=== PATIENT | male | born 1980 | race Caucasian/White ===

== ENCOUNTER 2017-05-15 21:56 | Emergency (ER) | payer BC, OTHER ==
[2017-05-15] MEDS ORDERED: PENICILLIN G BENZATHINE 1,200,000 UNITS INJ IM ONE (22:22)
[2017-05-15] MEDS ORDERED: PHARMACY KEY 1 EACH EACH MC ONE (22:26)
--- NOTE | 2017-05-15 22:27 | ED Physician Documentation ---
General Adult - HISTORIAN Historian: patient - HPI Stated Complaint: Left neck swelling Chief Complaint: General Adult Additional Information: Sore throat, swollen L neck, left ear pain, fever for 4 days. - ROS CONST: fever - PAST HX Past History: none Surgeries/Procedures: other (R knee, torn meniscus) Allergies/Adverse Reactions: Allergies Allergy/AdvReac Type Severity Reaction Status Date / Time No Known Allergies Allergy Verified 05/15/17 22:19 Home Medications: Ambulatory Orders Medication Instructions Recorded NK [NK] 05/15/17 - SOCIAL HX Smoking History: cigarettes Alcohol Use: heavy (12-15 beers daily) - FAMILY HX Family History: No - VITAL SIGNS Vital Signs: Vital Signs Temp Pulse Resp BP Pulse Ox 98.2 F 74 16 132/88 99 05/15/17 22:12 05/15/17 22:12 05/15/17 22:12 05/15/17 22:12 05/15/17 22:12 - REVIEWED ASSESSMENTS Nursing Assessment Reviewed: Yes Vitals Reviewed: Yes ED Results Lab/Radiology - Orders Orders: ED Orders Category Date Time Status Penicillin G Benzathine [Bicillin l-A] Med 05/15/17 22:22 Once 1,200,000 units IM NOW ONE General Adult Physical Exam - PHYSICAL EXAM GENERAL APPEARANCE: mild distress EENT: eye inspection normal, TM's nml (except abrasions L TM), other (2+ lymphadenopathy L ant cerv) NECK: normal inspection (except as above) RESPIRATORY: no resp distress, breath sounds normal CVS: heart sounds normal, no murmur BACK: normal inspection SKIN: warm/dry, normal color EXTREMITIES: normal range of motion (gait and stance), no evidence of injury NEURO: CN's nml as tested, motor nml, sensation nml, cognition normal Discharge Clincal Impression: Strep throat Referrals: Primary Doctor,No [Primary Care Provider] - 2 Days Additional Instructions: Tylenol or ibuprofen for any fever of 101 or higher. Return to the ER or see your provider if you are not getting better in 48 hours. Condition: Good Disposition: 01 HOME, SELF-CARE Decision to Admit: NO Decision Time: 22:22
[2017-05-15 22:43] VITALS: BP 126/74
== END 2017-05-15 22:40 | disposition home or self-care (01) ==
LOC: ED 21:56
DX: J02.0 Streptococcal pharyngitis (principal)
CPT/HCPCS: 87880; 99283

== ENCOUNTER 2017-06-06 11:09 | Emergency (ER) | payer BC, OTHER ==
--- NOTE | 2017-06-06 11:45 | ED Physician Documentation ---
General Adult - HISTORIAN Historian: patient - HPI Chief Complaint: Sore Throat Additional Information: 4 day history of illness. Had some hives 3 days ago. No tsure of cause. Has had cough, productive of green phlegm, sore throat, head congestion. Pressure felling in the sinuses. Having some mild left ear pain. Onset: days ago (5 days) Timing: still present - ROS CONST: fever. denies: chills - PAST HX Past History: none Other History: none Surgeries/Procedures: other (right orthroscopic surgery) Immunizations: referred to PCP Allergies/Adverse Reactions: Allergies Allergy/AdvReac Type Severity Reaction Status Date / Time No Known Allergies Allergy Verified 06/06/17 11:54 Home Medications: Ambulatory Orders Medication Instructions Recorded Azithromycin [Zithromax] 250 mg PO QD #6 tablet 06/06/17 - SOCIAL HX Smoking History: less than 1 pack/day Alcohol Use: other (10-12 beers daily) Drug Use: none - FAMILY HX Family History: No - VITAL SIGNS Vital Signs: Vital Signs Temp Pulse Resp BP Pulse Ox 126/74 05/15/17 22:40 - REVIEWED ASSESSMENTS Nursing Assessment Reviewed: Yes Vitals Reviewed: Yes General Adult Physical Exam - PHYSICAL EXAM GENERAL APPEARANCE: moderate distress EENT: eye inspection normal, pharyngeal erythema, other (sinus tenderness) NECK: normal inspection, thyroid normal, supple RESPIRATORY: no resp distress, chest non-tender, breath sounds normal. No: wheezes, rales, rhonchi CVS: reg rate & rhythm, heart sounds normal, equal pulses, no murmur, no gallop ABDOMEN: soft, no organomegaly, normal bowel sounds, no abdominal bruit, no distension EXTREMITIES: non-tender, normal range of motion, no evidence of injury, no edema , edema NEURO: oriented X3, CN's nml as tested, motor nml, mood/affect nml, cognition normal Discharge Clincal Impression: Sinusitis URI (upper respiratory infection) Qualifiers: URI type: unspecified URI Qualified Code(s): J06.9 - Acute upper respiratory infection, unspecified Prescriptions: Azithromycin [Zithromax] 250 mg PO QD #6 tablet Referrals: Primary Doctor,No [Primary Care Provider] - 2 Days Additional Instructions: Use saline nasal rinnses to help clear nasl passage and sinuses. Take mucinex to help with cough and congestion. Drink a lot of fluids. To see your primary care provider or return to the ED if needed. Take azithromycin as directed. Condition: Stable Disposition: 01 HOME, SELF-CARE Decision to Admit: NO Date of Decison to Admit: 06/06/17 Decision Time: 13:07
[2017-06-06 11:55] VITALS: BP 132/82
== END 2017-06-06 14:07 | disposition home or self-care (01) ==
LOC: ED 11:09
DX: J01.90 Acute sinusitis, unspecified (principal); J06.9 Acute upper respiratory infection, unspecified
CPT/HCPCS: 99283

== ENCOUNTER 2017-09-06 17:28 | Emergency (ER) | payer BC ==
--- NOTE | 2017-09-06 17:32 | ED Physician Documentation ---
General Adult - HISTORIAN Historian: patient - HPI Stated Complaint: cough Chief Complaint: Cough/ Upper Respiratory Onset: other (2 months ago ) Timing: still present Severity: mild Further Comments: yes (He states he started with a dry cough over two months ago. He states the cough turned into a productive cough he is not sure when . Over the last few weeks he has noticed blood in his sputum. He states he feels like something is caught at the bottom of his throat. Denies any fever. Denies night sweats. no weight loss . NO other complaints. He is not taking anything OTC for the cough. He smokes occasionally) - ROS CONST: no problems - PAST HX Past History: none Other History: none Surgeries/Procedures: none Immunizations: UTD Allergies/Adverse Reactions: Allergies Allergy/AdvReac Type Severity Reaction Status Date / Time No Known Allergies Allergy Verified 09/06/17 18:06 Home Medications: Ambulatory Orders Medication Instructions Recorded NK [NK] 09/06/17 - SOCIAL HX Smoking History: cigarettes Alcohol Use: none Drug Use: none - FAMILY HX Family History: No - VITAL SIGNS Vital Signs: Vital Signs Temp Pulse Resp BP Pulse Ox 132/82 06/06/17 11:09 - REVIEWED ASSESSMENTS Nursing Assessment Reviewed: Yes Vitals Reviewed: Yes Progress - Progress Progress: 1858: results discussed with pt and he is to follow up with PCP in 4-8 days DG ED Results Lab/Radiology - Radiology Radiology Impressions: Chest, PA and lateral HISTORY Cough. FINDINGS The heart, lungs, pleura, mediastinum and bony thorax are normal. IMPRESSION Normal. Electronically signed on Sep 06, 2017 6:42:40 PM CDT by: Aries Welch General Adult Physical Exam - PHYSICAL EXAM GENERAL APPEARANCE: no distress EENT: eye inspection normal, ENT inspection normal, pharyngeal erythema NECK: normal inspection RESPIRATORY: no resp distress, chest non-tender, breath sounds normal CVS: reg rate & rhythm, heart sounds normal, equal pulses, no murmur ABDOMEN: soft, no organomegaly, normal bowel sounds SKIN: warm/dry, normal color EXTREMITIES: non-tender, normal range of motion, no evidence of injury, no edema NEURO: oriented X3, CN's nml as tested, motor nml, sensation nml, mood/affect nml Discharge Clincal Impression: Cough Referrals: Primary Doctor,No [Primary Care Provider] - 2 Days Additional Instructions: 1. Augmentin 875/125 mg take 1 by mouth twice per day x 10 2. Medrol Dose pack as directed 3. Proair 2 puffs by mouth every 4-6 hours as needed for cough 4. Follow up with PCP in 4-6 days 5. Return to ER for any concerns Condition: Stable Disposition: 01 HOME, SELF-CARE Decision to Admit: NO Date of Decison to Admit: 09/06/17 Decision Time: 18:58
[2017-09-06 18:43] LABS: BASOPHILS % 0.6 (0.0-1.5); EOSINOPHILS % 1.5 % (0.0-6.8); MEAN CORPUSCULAR VOLUME 93.2 fl (80.0-100.0); MONOCYTES % 5.6 % (0.0-11.0); NEUTROPHILS # 5.8 # k/uL (1.4-7.7)
[2017-09-06 18:53] LABS: eGFR (African) > 60; eGFR (Non-African) > 60
[2017-09-06 19:15] VITALS: BP 128/78
--- NOTE | 2017-09-06 19:17 | Diagnostic Imaging Report ---
JAELYN DAWKINS [facility] [id number] [facility] [address] [place], [place]. [address] Report Submission Date: Sep 06, 2017 6:42:40 PM CDT Patient Study Name: CARIN YOUNGER Date: Sep 06, 2017 6:29:17 PM CDT Modality Type: DX Gender: M Description: CHEST : 82 Institution: [facility] Physician: JAELYN DAWKINS Chest, PA and lateral HISTORY Cough. FINDINGS The heart, lungs, pleura, mediastinum and bony thorax are normal. IMPRESSION Normal. Electronically signed on Sep 06, 2017 6:42:40 PM CDT by: Aries WESTON
== END 2017-09-06 19:05 | disposition home or self-care (01) ==
LOC: ED 17:28
DX: R05 Cough (principal)
CPT/HCPCS: 71046; 80053; 85025; 99282